=== PATIENT | female | born 1980 | race Caucasian/White ===

== ENCOUNTER 2022-02-09 16:45 | Outpatient (RCR) | payer BC, SELFPAY | END 2022-04-09 14:19 | disposition home or self-care (01) | PROVIDERS: Visit Provider Orthopaedic Surgery | DX: S83.411A Sprain of medial collateral ligament of right knee, initial encounter (principal); Z51.89 Encounter for other specified aftercare | CPT/HCPCS: 97110 ==

== ENCOUNTER 2025-05-24 16:45 | Outpatient (RCR) | payer BC, SELFPAY | END 2025-05-25 10:16 | disposition home or self-care (01) | PROVIDERS: Visit Provider Family Medicine | DX: M18.9 Osteoarthritis of first carpometacarpal joint, unspecified (principal); Z51.89 Encounter for other specified aftercare | CPT/HCPCS: 97110; 97166; 97535; L3913; X5282 ==